=== PATIENT | female | born 2000 | race Caucasian/White ===

== ENCOUNTER 2021-08-06 09:52 | Emergency (ER) | payer MEDICAID, OTHER ==
[~2021-08-06] VITALS: Ht 170.2 cm; Wt 59.1 kg
[2021-08-06 09:56] VITALS: BP 120/80
[2021-08-06] MEDS ORDERED: ibuprofen 200mg tablet PO ONE (11:00)
[2021-08-06] MEDS ORDERED: AMOX-580 PO (11:28)
[2021-08-06] MEDS ORDERED: CYCL-1 PO (11:28)
== END 2021-08-06 12:50 | disposition home or self-care (01) ==
LOC: ER 09:53
DX: L03.818 Cellulitis of other sites (principal); R50.9 Fever, unspecified; M54.89 Other dorsalgia; G89.29 Other chronic pain; F17.200 Nicotine dependence, unspecified, uncomplicated; Z88.1 Allergy status to other antibiotic agents; Z88.8 Allergy status to other drugs, medicaments and biological substances; Z79.2 Long term (current) use of antibiotics
CPT/HCPCS: 72220; 99283